=== PATIENT | male | born 1950 | race African-American/Black ===

== ENCOUNTER 2018-12-09 09:38 | Outpatient (CLI) | payer MEDICARE ==
--- NOTE | 2018-12-09 11:36 | RAD ---
CERVICAL SPINE SERIES 4 VIEWS WITH FLEXION AND EXTENSION: Date: 12/09/18 HISTORY: Left arm and hand numbness for over a year. FINDINGS: The vertebral bodies are normal in height. Prominent osteophytic changes are seen from C4-5 through C 7-T1 with minimal disc narrowing at C5-6 and C6-7. There is limited motion on the flexion or extensio n views. I do not see any significant elida or retrolisthesis present. IMPRESSION: Moderate arthritic changes of the cervical spine. POS: BHAVNA
== END 2018-12-09 09:39 | disposition home or self-care (01) ==
LOC: TBSIIMAG 09:38
PROVIDERS: ATTEND Neurological Surgery
DX: G56.00 Carpal tunnel syndrome, unspecified upper limb (principal); M46.92 Unspecified inflammatory spondylopathy, cervical region
CPT/HCPCS: 72040

== ENCOUNTER → 2018-12-19 | Day surgery (SDC) | payer MEDICARE ==
--- NOTE | 2018-12-17 19:45 | HP ---
HISTORY OF PRESENT ILLNESS: Mr. Summers returns to our office, last seen in 2018. He returns today for right-sided hand numbness and tingling. Right thumb, pointer and middle fingers are tingling. The patient states that he has had a difficult time sleeping and wakes up having to shake his arm out. He has pins and needles on the palm side of his hand. The patient states that following surgery on the left side, it feels much better and he is interested for surgery on the right. Gabapentin is the only thing that gives him any relief at this time. REVIEW OF SYSTEMS: A 10-point review of systems has been completed and is negative other than stated in the above HPI. PAST MEDICAL HISTORY: Pain in left arm, eye problems, indigestion, arthritis, headaches. PAST SURGICAL HISTORY: Hernia in 2012, carpal tunnel release in 08/2016, left eye surgery in 1994. FAMILY HISTORY: Father is , mother is , diagnosed with diabetes and cancer. Children are alive. SOCIAL HISTORY: The patient is a nonsmoker, drinks alcohol, does not use any other illicit drugs and is sexually active. MEDICATIONS: 1. Dorzolamide HCL. 2. Gabapentin. 3. . ALLERGIES: NO KNOWN DRUG ALLERGIES. PHYSICAL EXAMINATION: CONSTITUTIONAL: The patient is alert, oriented x3, does not appear to be in any visible distress. HEENT: Head is normocephalic, atraumatic. Pupils are equal, round, reactive to light. Extraocular movements are intact. Hearing is intact. Moist mucous membranes. NECK: Normal, soft, supple. No masses are noted. Range of motion is intact, nonpainful. RESPIRATIONS: Normal work of breathing on room air. CARDIO: Regular rate and rhythm. NEUROLOGIC: Awake, alert, oriented x3. Memory, attention, and fund of knowledge and language are normal. Cranial nerves are grossly intact. Upper extremities normal. Does not disclose any focal motor weakness or deep tendon reflex asymmetry. 5/5 bilateral strength in deltoids, biceps, triceps, wrist extension, finger extension, finger intrinsics. Reflexes symmetric. Positive right Tinel's, median nerve. IMAGING: EMG nerve conduction study shows right carpal tunnel. ASSESSMENT AND PLAN: Carpal tunnel syndrome, right wrist. Dr. Garcia has offered surgery, carpal tunnel release on the right. The patient states that he understands the risks and is willing to proceed with surgery. Job ID: [id number]
[2018-12-18 11:39] VITALS: BMI 38.3
[~2018-12-19] MED LIST: Bacitracin Zinc Ointment 30 gm TUBE ONE; CEFAZOLIN 2 GM/50 ML BAG ONE; Fentanyl 100 MCG/2 ML VIAL ONE; Lidocaine 1% (PF) 30 ML VIAL ONE; Lidocaine 1% PF 5 ML VIAL ONE; Metoclopramide HCl 10 MG/2 ML VIAL ONE; Ondansetron PF 4 MG/2 ML Vial ONE; PROPOFOL 200 MG/20 ML VIAL ONE; Sodium Chloride 0.9% 10 ML ONE
[2018-12-19 08:57] LABS: #Basophils 0.1 thou/uL (0.0-0.2); #Eosinphils 0.4 thou/uL (0.0-0.7); #Lymphocytes 1.8 thou/uL (1.20-3.40); #Monocytes 0.5 thou/uL (0.11-0.59); #Neutrophils 4.3 thou/uL (1.40-6.50); %Basophils 0.7 % (0.0-1.0); %Monocytes 6.4 % (0.0-10.0); %Neutrophils 60.9 % (42.0-75.0); Hemoglobin 13.9 g/dL (14.0-18.0); Mean Corpuscular HGB CONC 31.5 g/dL (32.0-36.0); Mean Corpuscular Volume 85.7 fL (78.0-98.0); Mean Platelet Volume 7.1 fL (7.4-10.4); Platelet Count 207 thou/uL (130-400); RBC Distribution Width 12.9 % (11.5-14.5); Red Blood Cell (RBC) Count 5.16 mill/uL (4.70-6.10); White Blood Cell (WBC) Count 7.1 thou/uL (4.8-10.8)
[2018-12-19 09:02] LABS: Prothrombin Time 13.5 SEC (12.0-14.7)
--- NOTE | 2018-12-19 11:39 | OP ---
DATE OF PROCEDURE: 12/19/2018 [employer]: Katy English PA-C. PREOPERATIVE INDICATION: Treat pain and prevent neurological deterioration. PREOPERATIVE DIAGNOSIS: Right carpal tunnel syndrome. POSTOPERATIVE DIAGNOSIS: Right carpal tunnel syndrome. PROCEDURE PERFORMED: Release of right carpal tunnel (median neurorrhaphy at the wrist). PREOPERATIVE MEDICATION: Ancef 2 g IV. DRAIN NUMBER: Zero. DRAIN TYPE: None. DESCRIPTION OF PROCEDURE: The patient was brought to the operating room. LMA anesthesia was induced. The entire right arm was sterilely prepped and draped. We planned an incision inline with the web space between the middle and ring finger from the distal palmar crease into the palm past the base of the thumb. Under a planned incision, we infused local anesthetic. We incised the skin with a 15 blade knife and controlled bleeding with bipolar cautery. We placed a self-retaining retractor. With a fresh 15 blade knife, we sectioned the transverse carpal ligament. We placed a Aida rake into skin in the palm and sectioned the transverse carpal ligament until we encountered a release of pressure in the palmar fat pad. In a similar fashion, we placed a rake into the skin of the wrist. We advanced scissors with one blade beneath and one blade above the transverse carpal ligament into the forearm until there was more than adequate decompression of the median nerve and the carpal tunnel. We irrigated copiously with bacitracin irrigation. We controlled bleeding with gentle bipolar cautery. We closed the incision with vertical mattress sutures, and a sterile dressing was applied. This was a clean case with no contamination. Job ID: [id number]
== END ==
LOC: SDC 07:51
PROVIDERS: ATTEND Neurological Surgery
PROC: 01N50ZZ Release Median Nerve, Open Approach (ICD-10-PCS; principal; 2018-12-19)
DX: G56.01 Carpal tunnel syndrome, right upper limb (principal); M19.90 Unspecified osteoarthritis, unspecified site; Z79.899 Other long term (current) drug therapy; Z98.890 Other specified postprocedural states
CPT/HCPCS: 36415; 85025; 85610; 85730; J2001; J2405; J2704; J2765; J3010; J3490

== ENCOUNTER 2019-01-29 10:41 | Outpatient (CLI) | payer MEDICARE ==
--- NOTE | 2019-01-29 13:25 | RAD ---
LUMBAR SPINE FOUR VIEWS: 01/29/2019 HISTORY: Lumbar spondylosis. COMPARISON: None. FINDINGS: There is mild left lateral osteophyte formation at L3-L4. There is multilevel mild bilateral facet h ypertrophy at L3-L4, L4-L5, and L5-S1. Neutral lateral imaging demonstrates no anterolisthesis or re trolisthesis. With flexion and extension views, no anterolisthesis or retrolisthesis is seen. No ac algaaciq osseous abnormality. IMPRESSION: Degenerative changes as above. POS: BHAVNA
== END 2019-01-29 10:42 | disposition home or self-care (01) ==
LOC: BICRAD 10:41
PROVIDERS: ATTEND Anesthesiology Pain Medicine
DX: M47.816 Spondylosis without myelopathy or radiculopathy, lumbar region (principal); M43.16 Spondylolisthesis, lumbar region
CPT/HCPCS: 72120

== ENCOUNTER 2019-02-12 10:19 | Outpatient (CLI) | payer MEDICARE ==
--- NOTE | 2019-02-12 11:56 | MRI ---
FMR of the cervical spine without contrast INDICATION: 68-year-old male with cervical radiculopathy Comparison prior exam dated 04/13/2016 FINDINGS: The bone marrow signal intensity appears within normal limits. The visualized posterior fossa appears within normal limits. Spinal alignment is within normal limits. The visualized prevertebral and para vertebral soft tissues appear within normal limits. At C2-C3, there is mild facet joint degenerative change and a mild broad-based bulge but no appreciab le central canal or neural foraminal narrowing. This appears stable to the prior exam. At C3-4, there is a mild broad-based bulge. There is uncovertebral hypertrophy and facet joint degene rative changes inducing mild bilateral neural foraminal narrowing which is stable. At C4-5, there is a mild broad-based bulge with uncovertebral hypertrophy and facet joint degenerativ e changes inducing mild bilateral neural foraminal narrowing which is stable. At C5-6, there is a broad-based bulge causing effacement of the ventral subarachnoid space without de finite cord compression. Uncovertebral hypertrophy and facet joint degenerative changes inducing mild bilateral neural foraminal narrowing, right greater than left. The above findings are stable to the prior exam. At C6-7, there is moderate broad-based bulge with facet hypertrophy inducing mild right and moderate to severe left neural foraminal narrowing. This appears stable to the prior exam. At C7-T1, there is a mild broad-based bulge and facet hypertrophy but no appreciable central canal or neural foraminal narrowing. IMPRESSION: 1. Stable moderate to severe left neural foraminal narrowing at C6-7. 2. Stable mild central canal narrowing at C5-6 with mild bilateral neural foraminal narrowing. 3. Stable mild multilevel neural foraminal narrowing at C3-4 and C4-5.
== END 2019-02-12 10:20 | disposition home or self-care (01) ==
LOC: BICMRI 10:19
PROVIDERS: ATTEND Neurological Surgery
DX: M54.12 Radiculopathy, cervical region (principal); M48.02 Spinal stenosis, cervical region
CPT/HCPCS: 72141